=== PATIENT | male | born 2000 | race Caucasian/White ===

== ENCOUNTER → 2023-09-11 | Outpatient (CLI) | payer OTHER | LOC: M RAD 06:52 | PROVIDERS: ATTEND Physician Assistant | DX: M67.441 Ganglion, right hand (principal) ==

== ENCOUNTER 2023-11-07 06:17 | Day surgery (SDC) | payer OTHER ==
[~2023-11-07] VITALS: Ht 157.5 cm; Wt 55.9 kg
[2023-11-07] MEDS ORDERED: LIDOCAINE W/EPINEPHRINE 1% 20ML VIAL ID ONE (07:00)
[2023-11-07] MEDS ORDERED: SODIUM BICARBONATE 8.4% INJ 50MEQ 50ML VIAL ID ONE (07:00)
[2023-11-07] MEDS: BACITRACIN OINTMENT 30GM TUBE As Ordered ONE (08:05)
[2023-11-07 08:15] VITALS: BP 111/71; TEMP 98.1; O2SAT 100
== END 2023-11-07 08:27 | disposition home or self-care (01) ==
LOC: M SDC 06:17
PROVIDERS: ATTEND Orthopaedic Surgery Hand Surgery
DX: M67.843 Other specified disorders of tendon, right hand (principal)